=== PATIENT | female | born 1960 | race Caucasian/White ===

== ENCOUNTER 2017-08-17 20:11 | Observation (INO) | payer MEDICAID, OTHER ==
[2017-08-17] MEDS: hydrALAzine 20 MG INJ IV (22:01)
[2017-08-17 22:18] LABS: ADD MAN DIFF? NO
[2017-08-17 22:21] LABS: BASOPHILS % 0.6 % (0.0-2.0); EOSINOPHILS # 0.1 10^3/ul (0.0-0.5); EOSINOPHILS % 1.7 % (0.0-7.0); HEMATOCRIT 43.7 % (37.0-47.0); LYMPHOCYTES # 2.3 10^3/ul (0.8-2.9); LYMPHOCYTES % 35.4 % (15.0-51.0); MEAN CORPUSCULAR HEMOGLOBIN 30.1 pg (29.0-33.0); MEAN CORPUSCULAR HGB CONC 34.3 g/dl (32.0-37.0); MEAN CORPUSCULAR VOLUME 87.6 fl (82.0-101.0); MEAN PLATELET VOLUME 10.1 fl (7.4-10.4); MONOCYTE # 0.5 10^3/ul (0.3-0.9); MONOCYTES % 7.5 % (0.0-11.0); NEUTROPHIL # 3.5 10^3/ul (1.6-7.5); NEUTROPHILS % 54.6 % (39.0-77.0); PLATELET COUNT 252 10^3/UL (140-415); RED BLOOD COUNT 4.99 10^6/ul (4.20-5.40); RED CELL DISTRIBUTION WIDTH 12.3 % (11.5-14.5)
[2017-08-17 22:21] LABS: WHITE BLOOD COUNT 6.4 10^3/ul (4.8-10.8)
[2017-08-17 22:35] LABS: INR 1.01; PROTIME 13.4 Sec (11.9-14.9)
[2017-08-17 22:36] LABS: PARTIAL THROMBOPLASTIN TIME 34.9 Sec (25.0-35.0)
[2017-08-17 22:41] LABS: ANION GAP 13 (8-16); BLOOD UREA NITROGEN 17 mg/dl (7-20); CALCIUM 9.6 mg/dl (8.4-10.2); CARBON DIOXIDE 26 mmol/L (21-31); CHLORIDE 107 mmol/L (97-110); CREATININE 0.77 mg/dl (0.44-1.00); GLUCOSE 132 mg/dl (70-220); POTASSIUM 3.6 mmol/L (3.5-5.1); SODIUM 142 mmol/L (135-144)
[2017-08-17 22:53] LABS: TROPONIN-I < 0.012 ng/ml (0.00-0.12)
[2017-08-17] MEDS: KETOROLAC 30 MG INJ IV (23:56)
[2017-08-18] MEDS ORDERED: ALBUTEROL/IPRATROPIUM (NEB) 3 ML AMP HHN (05:00)
[2017-08-18] MEDS ORDERED: ONDANSETRON 4 MG INJ IV (05:00)
[2017-08-18] MEDS ORDERED: hydrALAzine 20 MG INJ IV (05:00)
[2017-08-18] MEDS ORDERED: NACL 0.9% 3 ML SYG IV (05:00)
[2017-08-18] MEDS ORDERED: ACETAMINOPHEN 325 MG TAB PO (05:00)
[2017-08-18] MEDS: SUMATRIPTAN 6 MG/0.5 ML INJ SC (05:22)
[2017-08-18 08:31] LABS: ADD MAN DIFF? NO
[2017-08-18 08:35] LABS: BASOPHILS % 0.5 % (0.0-2.0); EOSINOPHILS # 0.1 10^3/ul (0.0-0.5); EOSINOPHILS % 1.8 % (0.0-7.0); HEMATOCRIT 42.6 % (37.0-47.0); HEMOGLOBIN 14.8 g/dl (12.0-16.0); LYMPHOCYTES # 1.7 10^3/ul (0.8-2.9); LYMPHOCYTES % 30.9 % (15.0-51.0); MEAN CORPUSCULAR HEMOGLOBIN 30.1 pg (29.0-33.0); MEAN CORPUSCULAR HGB CONC 34.7 g/dl (32.0-37.0); MEAN CORPUSCULAR VOLUME 86.8 fl (82.0-101.0); MONOCYTE # 0.4 10^3/ul (0.3-0.9); MONOCYTES % 6.6 % (0.0-11.0); NEUTROPHIL # 3.4 10^3/ul (1.6-7.5); PLATELET COUNT 246 10^3/UL (140-415); RED BLOOD COUNT 4.91 10^6/ul (4.20-5.40); RED CELL DISTRIBUTION WIDTH 12.4 % (11.5-14.5)
[2017-08-18 08:35] LABS: WHITE BLOOD COUNT 5.6 10^3/ul (4.8-10.8)
[2017-08-18 08:48] LABS: ALANINE AMINOTRANSFERASE 46 IU/L (13-69); ALBUMIN/GLOBULIN RATIO 1.33; ALKALINE PHOSPHATASE 81 IU/L (42-121); ANION GAP 13 (8-16); ASPARTATE AMINO TRANSFERASE 30 IU/L (15-46); BILIRUBIN,INDIRECT 0.5 mg/dl (0-1.1); BILIRUBIN,TOTAL 0.5 mg/dl (0.2-1.3); BLOOD UREA NITROGEN 14 mg/dl (7-20); CALCIUM 9.5 mg/dl (8.4-10.2); CARBON DIOXIDE 23 mmol/L (21-31); CHLORIDE 109 mmol/L (97-110); CREATININE 0.67 mg/dl (0.44-1.00); GLUCOSE 104 mg/dl (70-220); POTASSIUM 4.4 mmol/L (3.5-5.1); SODIUM 141 mmol/L (135-144)
[2017-08-18 08:55] LABS: CREATINE KINASE 41 IU/L (23-200)
[2017-08-18 09:01] LABS: CK INDEX 1.1; CK-MB 0.47 ng/ml (0.0-2.4)
[2017-08-18 09:07] LABS: TROPONIN-I < 0.012 ng/ml (0.00-0.12)
[2017-08-18] MEDS: AMLODIPINE 10 MG TAB PO (09:25)
[2017-08-18 14:53] LABS: CREATINE KINASE 37 IU/L (23-200)
[2017-08-18 15:06] LABS: CK INDEX 0.8; CK-MB 0.29 ng/ml (0.0-2.4)
[2017-08-18 15:22] LABS: TROPONIN-I < 0.012 ng/ml (0.00-0.12)
[2017-08-18] MEDS ORDERED: KETOROLAC 30 MG INJ (19:28)
[2017-08-18] MEDS: traMADol 50 MG TAB PO (19:32)
[2017-08-18] MEDS: INFLUENZA VIRUS VACCINE 0.5 ML (DISPENSING) IM* (19:33)
[2017-08-19 05:41] LABS: ADD MAN DIFF? NO
[2017-08-19 06:05] LABS: BASOPHILS % 0.7 % (0.0-2.0); EOSINOPHILS # 0.1 10^3/ul (0.0-0.5); EOSINOPHILS % 2.5 % (0.0-7.0); HEMATOCRIT 42.3 % (37.0-47.0); HEMOGLOBIN 14.5 g/dl (12.0-16.0); LYMPHOCYTES # 2.1 10^3/ul (0.8-2.9); LYMPHOCYTES % 36.6 % (15.0-51.0); MEAN CORPUSCULAR HGB CONC 34.3 g/dl (32.0-37.0); MEAN CORPUSCULAR VOLUME 87.6 fl (82.0-101.0); MEAN PLATELET VOLUME 10.2 fl (7.4-10.4); MONOCYTE # 0.4 10^3/ul (0.3-0.9); NEUTROPHILS % 52.8 % (39.0-77.0); PLATELET COUNT 242 10^3/UL (140-415); RED BLOOD COUNT 4.83 10^6/ul (4.20-5.40); RED CELL DISTRIBUTION WIDTH 12.7 % (11.5-14.5)
[2017-08-19 06:05] LABS: WHITE BLOOD COUNT 5.7 10^3/ul (4.8-10.8)
[2017-08-19 06:48] LABS: ANION GAP 13 (8-16); BLOOD UREA NITROGEN 19 mg/dl (7-20); CARBON DIOXIDE 22 mmol/L (21-31); CHLORIDE 110 mmol/L (97-110); CREATININE 0.76 mg/dl (0.44-1.00); GLUCOSE 105 mg/dl (70-220); PHOSPHORUS 4.6 mg/dl (2.5-4.9); POTASSIUM 4.1 mmol/L (3.5-5.1); SODIUM 141 mmol/L (135-144)
[2017-08-19] MEDS: AMLODIPINE 10 MG TAB PO (09:24)
[2017-08-19] MEDS: ASA PO (09:26)
[2017-08-19] MEDS: CAFF PO (09:26)
[2017-08-19] MEDS: BUTAL PO (09:26)
[2017-08-20] MEDS ORDERED: POLYETHYLENE GLYCOL 17 GM PACKET PO (10:00)
[2017-08-20] MEDS: AMLODIPINE 10 MG TAB PO (10:15)
[2017-08-20] MEDS: DOCUSATE SODIUM 100 MG CAP PO (10:15)
== END 2017-08-20 11:23 | disposition home or self-care (01) ==
LOC: MS3 08-18 06:23 → E/R 20:11 → MS3 08-18 00:31
DX: R51 Headache (principal); R07.9 Chest pain, unspecified; M79.652 Pain in left thigh; M79.651 Pain in right thigh; I10 Essential (primary) hypertension
CPT/HCPCS: 36415; 70450; 71045; 80048; 80053; 82550; 82553; 83735; 84100; 84484; 85025; 85610; 85730; 90686; 93005; 93306; 93970; 96372; 96374; 96375; 99285-25

== ENCOUNTER 2017-11-16 19:41 | Emergency (ER) | payer MEDICAID ==
[2017-11-16] MEDS: KETOROLAC 30 MG INJ IM (21:55)
== END 2017-11-16 22:22 | disposition home or self-care (01) ==
LOC: FTE 19:41
DX: S92.352A Displaced fracture of fifth metatarsal bone, left foot, initial encounter for closed fracture (principal); I10 Essential (primary) hypertension; X58.XXXA Exposure to other specified factors, initial encounter; Y92.9 Unspecified place or not applicable
CPT/HCPCS: 73562; 73610; 73630-LT; 96372; 99284-25